=== PATIENT | female | born 2000 | race Caucasian/White ===

== ENCOUNTER 2021-01-11 09:13 | Emergency (ER) | payer SELFPAY ==
[~2021-01-11] VITALS: Ht 160 cm; Wt 50.9 kg
--- NOTE | 2021-01-11 10:15 | PHYS DOC ---
Past History Additional Past Medical Histor: PTSD, ADHD, OCD Past Surgical History: No Surgical History Alcohol Use: None General Adult EDM: Chief Complaint: FACE PAIN HPI: HPI: 20-year-old female presents with preauricular pain and occipital/upper cervical spine pain. The patient has had multiple episodes of the last 1 month where she gets a sharp pain in front of her ear around the TMJ. Sometimes this pain is coupled with an occipital pressure that feels like a vibration sensation at the very top of her neck that radiates down her neck. She will sometimes get the pain in front of her ear alone without the neck pain. She thinks the neck pain and headache are almost always coupled with the pain in front of her ear. Sometimes the pain is so significant that she cannot sleep at night. It has woken her from sleep times over the last 2 to 3 days. She denies history of migraines. She denies trauma or falls. She does have a popping sound on that side when she opens and closes her mouth. Review of Systems: Review of Systems: Constitutional: Denies fever or chills Eyes: Denies change in visual acuity HENT: Right TMJ pain Respiratory: Denies cough or shortness of breath Cardiovascular: Denies chest pain or edema GI: Denies abdominal pain, nausea, vomiting, bloody stools or diarrhea : Denies dysuria Musculoskeletal: Denies back pain or joint pain Integument: Denies rash Neurologic: Right-sided occipital headaches. Denies focal weakness or sensory changes Endocrine: Denies polyuria or polydipsia Lymphatic: Denies swollen glands Psychiatric: Denies depression or anxiety Allergies: Allergies: Allergies Coded Allergies Type Severity Reaction Last Updated Verified No Known Drug Allergies 01/11/21 No Physical Exam: PE: Constitutional: Well developed, well nourished, no acute distress, non-toxic appearance. [] HENT: Normocephalic, atraumatic, bilateral external ears normal, oropharynx moist, no oral exudates, nose normal. Bilateral tympanic membranes normal. [] Eyes: PERRLA, EOMI, conjunctiva normal, no discharge. [] Neck: Normal range of motion, no tenderness, supple, no stridor. [] Cardiovascular: Heart rate regular rhythm, no murmur [] Lungs & Thorax: Bilateral breath sounds clear to auscultation [] Abdomen: Bowel sounds normal, soft, no tenderness, no masses, no pulsatile masses. [] Skin: Warm, dry, no erythema, no rash. [] Back: No tenderness, no CVA tenderness. [] Extremities: No tenderness, no cyanosis, no clubbing, ROM intact, no edema. [] Neurologic: Alert and oriented X 3, normal motor function, normal sensory function, no focal deficits noted. [] Psychologic: Affect normal, judgement normal, mood normal. [] Current Patient Data: Vital Signs: Vital Signs Date Time Temp Pulse Resp B/P (MAP) Pulse Ox O2 Delivery O2 Flow Rate FiO2 01/11/21 09:25 98.3 110 18 125/83 98 Room Air EKG: EKG: [] Radiology/Procedures: Radiology/Procedures: [] Impressions: INDICATION: Reason: headaches, neck pain / Spl. Instructions: / History: COMPARISON: None. TECHNIQUE: Axial CT images obtained through the head and cervical spine without intravenous contrast. Coronal and sagittal reformats processed of cervical spine. One or more of the following individualized dose reduction techniques were utilized for this examination: 1. Automated exposure control; 2. Adjustment of the mA and/or kV according to patient size; 3. Use of iterative reconstruction technique. FINDINGS: Head: No intracranial hemorrhage. No midline shift. Basal cisterns patents. Ventricles and sulci are within normal limits. No acute osseous abnormality. Orbits and paranasal sinuses unremarkable. Cervical: No definite acute fracture. No dislocation. No evidence of perivertebral hematoma. IMPRESSION: * No acute intracranial hemorrhage. * No acute fracture or dislocation of the cervical spine. Electronically signed by: Leander Barney MD (01/11/2021 10:43 AM) DESKTOP- [id number] DICTATED AND SIGNED BY: LEANDER BARNEY MD DATE: 01/11/21 1032 CC: JOHN MONTERO DO; PCP,NO ~MTH0 0 Heart Score: C/O Chest Pain: N/A Risk Factors: Risk Factors: DM, Current or recent (<one month) smoker, HTN, HLP, family history of CAD, obesity. Risk Scores: Score 0 - 3: 2.5% MACE over next 6 weeks - Discharge Home Score 4 - 6: 20.3% MACE over next 6 weeks - Admit for Clinical Observation Score 7 - 10: 72.7% MACE over next 6 weeks - Early Invasive Strategies Course & Med Decision Making: Course & Med Decision Making Pertinent Labs and Imaging studies reviewed. (See chart for details) The patient's CT of the head and cervical spine is negative for acute findings. Based on my exam, I believe she definitely has TMJ dysfunction and I recommended that she follow-up with an appropriate dentist or her maxillofacial specialist. I am not sure what is causing the pain in the occipital part of her head. It could be triggered from the TMJ pain. It could be a separate issue emanating from her neck. She is right-handed and does a lot of painting. I have advised that she follow-up with her primary physician and consider physical therapy and/or further imaging as necessary. She is stable for discharge at this time. [] Anirudhon Disclaimer: Alejandro Disclaimer: This electronic medical record was generated, in whole or in part, using a voice recognition dictation system. Departure Departure: Impression: Primary Impression: TMJ disease Additional Impression: Headache Qualified Codes: G44.209 - Tension-type headache, unspecified, not intractable Disposition: 01 HOME / SELF CARE / HOMELESS Condition: STABLE Referrals: PCPMELBA (PCP) Patient Instructions: Temporomandibular Joint Pain-Brief, Tension Headache, [id number] JOHN MONTERO DO Jan 11, 2021 10:15
--- NOTE | 2021-01-11 10:46 | RAD ---
INDICATION: Reason: headaches, neck pain / Spl. Instructions: / History: COMPARISON: None. TECHNIQUE: Axial CT images obtained through the head and cervical spine without intravenous contrast. Coronal a nd sagittal reformats processed of cervical spine. One or more of the following individualized dose reduction techniques were utilized for this examinat ion: 1. Automated exposure control; 2. Adjustment of the mA and/or kV according to patient size; 3 . Use of iterative reconstruction technique. FINDINGS: Head: No intracranial hemorrhage. No midline shift. Basal cisterns patents. Ventricles and sulci are within normal limits. No acute osseous abnormality. Orbits and paranasal sinuses unremarkable. Cervical: No definite acute fracture. No dislocation. No evidence of perivertebral hematoma. IMPRESSION: * No acute intracranial hemorrhage. * No acute fracture or dislocation of the cervical spine. Electronically signed by: Aj Barney MD (01/11/2021 10:43 AM) [id number]
[2021-01-11 12:05] VITALS: BP 104/65
== END 2021-01-11 12:13 | disposition home or self-care (01) ==
LOC: ER 09:13
DX: M26.621 Arthralgia of right temporomandibular joint (principal); G44.209 Tension-type headache, unspecified, not intractable; F43.10 Post-traumatic stress disorder, unspecified
CPT/HCPCS: 70450; 72125; 99285-25

== ENCOUNTER 2021-01-24 21:12 | Emergency (ER) | payer SELFPAY ==
[~2021-01-24] VITALS: Ht 160 cm; Wt 51.4 kg
[2021-01-24 21:52] VITALS: BP 119/70
--- NOTE | 2021-01-24 21:53 | PHYS DOC ---
Past History Additional Past Medical Histor: PTSD, ADHD, OCD (QASIM BARFIELD APRN) Past Surgical History: No Surgical History (QASIM BARFIELD APRN) Alcohol Use: None (QASIM BARFIELD APRN) General Adult EDM: Chief Complaint: CHEST PAIN HPI: HPI: Patient is a 20-year-old female presents with left-sided chest pain for 3 days. Patient states "I have had this weird feeling in the left side of my chest and also like at tingling sensation". Patient denies nausea/vomiting/diarrhea. Denies shortness of breath. Patient states "I had to have anxiety so I do not know if that is what this is". Only health history is anxiety. (QASIM BARFIELD APRN) Review of Systems: Review of Systems: Constitutional: Denies fever or chills Eyes: Denies change in visual acuity HENT: Denies nasal congestion or sore throat Respiratory: Denies cough or shortness of breath Cardiovascular: Reports chest pain. Denies edema GI: Denies abdominal pain, nausea, vomiting, bloody stools or diarrhea : Denies dysuria Musculoskeletal: Denies back pain or joint pain Integument: Denies rash Neurologic: Denies headache, focal weakness or sensory changes Endocrine: Denies polyuria or polydipsia Lymphatic: Denies swollen glands Psychiatric: Denies depression or anxiety (QASIM BARFIELD APRN) Allergies: Allergies: Allergies Coded Allergies Type Severity Reaction Last Updated Verified No Known Drug Allergies 01/11/21 No (QASIM BARFIELD APRN) Physical Exam: PE: Constitutional: Well developed, well nourished, no acute distress, non-toxic appearance. [] HENT: Normocephalic, atraumatic, bilateral external ears normal, oropharynx moist, no oral exudates, nose normal. [] Eyes: PERRLA, EOMI, conjunctiva normal, no discharge. [] Neck: Normal range of motion, no tenderness, supple, no stridor. [] Cardiovascular:Heart rate regular rhythm, no murmur [] Lungs & Thorax: Bilateral breath sounds clear to auscultation [] Abdomen: Bowel sounds normal, soft, no tenderness, no masses, no pulsatile masses. [] Skin: Warm, dry, no erythema, no rash. [] Back: No tenderness, no CVA tenderness. [] Extremities: No tenderness, no cyanosis, no clubbing, ROM intact, no edema. [] Neurologic: Alert and oriented X 3, normal motor function, normal sensory function, no focal deficits noted. [] Psychologic: Affect normal, judgement normal, mood normal. [] (QASIM BARFIELD APRN) Current Patient Data: Vital Signs: Vital Signs Date Time Temp Pulse Resp B/P (MAP) Pulse Ox O2 Delivery O2 Flow Rate FiO2 01/24/21 21:16 98.6 92 16 138/81 98 Room Air (QASIM BARFIELD APRN) EKG: EKG: [] Sinus rhythm. Heart rate 82 bpm. (QASIM ABRFIELD APRN) Radiology/Procedures: Radiology/Procedures: [] (QASIM BARFIELD APRN) Heart Score: C/O Chest Pain: Yes HEART Score for Chest Pain: HEART Score for Chest Pain Response (Comments) Value History Slighlty/Non-Suspicious 0 ECG Normal 0 Age < 45 0 Risk Factors No Risk Factors 0 Total 0 Risk Factors: Risk Factors: DM, Current or recent (<one month) smoker, HTN, HLP, family history of CAD, obesity. Risk Scores: Score 0 - 3: 2.5% MACE over next 6 weeks - Discharge Home Score 4 - 6: 20.3% MACE over next 6 weeks - Admit for Clinical Observation Score 7 - 10: 72.7% MACE over next 6 weeks - Early Invasive Strategies (QASIM BARFIELD APRN) Course & Med Decision Making: Course & Med Decision Making Pertinent Labs and Imaging studies reviewed. (See chart for details) [] 20-year-old female presents with left-sided chest pain for 3 days. Patient reports that she has a history of anxiety and is concerned that that is what is causing her chest pain. Patient denies shortness of breath, dizziness, nausea/vomiting. Chest x-ray, troponin, UA, urine , EKG ordered. Transfer of patient care to Dr. Montero at 2152 (QASIM BARFIELD APRN) Course & Med Decision Making The patient's labs are unremarkable. Her chest x-ray is negative for acute findings. Her troponin is negative. Her urinalysis is negative for infection. She is not . It seems like the patient deals with anxiety. I do not see any concerning cardiopulmonary findings. She is stable for discharge at this time. (JOHN MONTERO DO) Dragon Disclaimer: Dragon Disclaimer: This electronic medical record was generated, in whole or in part, using a voice recognition dictation system. (QASIM BARFIELD APRN) Attending Co-Sign The patient was seen and interviewed as well as examined at the bedside. The chart was reviewed. The case was discussed. Agree with the plan of care. (JOHN MONTERO DO) Departure Departure: Impression: Primary Impression: Chest pain Qualified Codes: R07.9 - Chest pain, unspecified Additional Impression: Anxiety about health Disposition: HOME / SELF CARE / HOMELESS Condition: STABLE Referrals: PCP,MELBA (PCP) Patient Instructions: Chest Pain (Nonspecific), [id number] QASIM BARFIELD APRN Jan 24, 2021 21:53 JOHN MONTERO DO Jan 24, 2021 22:46
[2021-01-24 22:14] LABS: BACTERIA,URINE 0 /HPF (0-FEW); BILIRUBIN,URINE NEG (NEG); CLARITY,URINE CLEAR; COLOR,URINE YELLOW; GLUCOSE,URINE NEG (NEG); NITRITE,URINE NEG (NEG); RBC,URINE RARE /HPF (0-2); SQUAMOUS EPITHELIAL CELL,UR FEW /LPF; UROBILINOGEN,URINE 0.2 mg/dL (0.2 mg/dL); WBC,URINE RARE /HPF (0-4)
--- NOTE | 2021-01-24 22:22 | RAD ---
Exam: Chest one view INDICATION: Chest pain TECHNIQUE: Frontal view of the chest Comparisons: None FINDINGS: The cardiomediastinal silhouette and pulmonary vessels are within normal limits. The lung and pleural spaces are clear. IMPRESSION: No acute cardiopulmonary process. Electronically signed by: Massiel Moctezuma MD (01/24/2021 10:20 PM) JOANN
--- NOTE | 2021-01-25 06:29 | EKG ---
[address] [address] Test Date: 2021-01-24 Test Time: 21:30:28 Pat Name: DELROY DAVIS Department: Room: Gender: F Clinical Assistant Professor: : 2000 Requested By: QASIM BARFIELD Order Number: [id number] Reading MD: Measurements Intervals [place] Rate: 82 P: 62 AL: 164 QRS: 43 QRSD: 76 T: 43 QT: 348 QTc: 409 Interpretive Statements SINUS RHYTHM NORMAL ECG RI6.02 No previous ECG available for comparison
== END 2021-01-24 22:57 | disposition home or self-care (01) ==
LOC: ER 21:12
DX: R07.89 Other chest pain (principal); F41.9 Anxiety disorder, unspecified
CPT/HCPCS: 36415; 71045; 81001; 81025; 84484; 93005; 99285

== ENCOUNTER 2021-03-20 09:09 | Emergency (ER) | payer SELFPAY ==
[~2021-03-20] VITALS: Ht 160 cm; Wt 51.4 kg
[2021-03-20 09:09] VITALS: BP 127/71
--- NOTE | 2021-03-20 09:59 | PHYS DOC ---
Past History Additional Past Medical Histor: PTSD, ADHD, OCD Past Surgical History: No Surgical History Alcohol Use: None General Adult EDM: Chief Complaint: SORE THROAT HPI: HPI: 20-year-old female presents with throat discomfort. The patient has been having a feeling of throat restriction for the last couple of days. She has had this feeling on and off depending on how bad her acid reflux is for several weeks. Over the last couple of days she feels like anything that she swallows goes down slowly and feels like a "lump". She only takes generic Tums for her acid reflux. She has never had an EGD. She denies fever or chills. She has no significant complaints at this time. Review of Systems: Review of Systems: Constitutional: Denies fever or chills Eyes: Denies change in visual acuity HENT: Sore throat Respiratory: Denies cough or shortness of breath Cardiovascular: Denies chest pain or edema GI: Denies abdominal pain, nausea, vomiting, bloody stools or diarrhea : Denies dysuria Musculoskeletal: Denies back pain or joint pain Integument: Denies rash Neurologic: Denies headache, focal weakness or sensory changes Endocrine: Denies polyuria or polydipsia Lymphatic: Denies swollen glands Psychiatric: Denies depression or anxiety Allergies: Allergies: Allergies Coded Allergies Type Severity Reaction Last Updated Verified No Known Drug Allergies 01/11/21 No Physical Exam: PE: Constitutional: Well developed, well nourished, no acute distress, non-toxic appearance. [] HENT: Normocephalic, atraumatic, bilateral external ears normal, oropharynx moist, no oral exudates, nose normal. [] Eyes: PERRLA, EOMI, conjunctiva normal, no discharge. [] Neck: Normal range of motion, no tenderness, supple, no stridor. [] Cardiovascular: Heart rate regular rhythm, no murmur [] Lungs & Thorax: Bilateral breath sounds clear to auscultation [] Abdomen: Bowel sounds normal, soft, no tenderness, no masses, no pulsatile masses. [] Skin: Warm, dry, no erythema, no rash. [] Back: No tenderness, no CVA tenderness. [] Extremities: No tenderness, no cyanosis, no clubbing, ROM intact, no edema. [] Neurologic: Alert and oriented X 3, normal motor function, normal sensory function, no focal deficits noted. [] Psychologic: Affect normal, judgement normal, mood anxious. [] Current Patient Data: Vital Signs: Vital Signs Date Time Temp Pulse Resp B/P (MAP) Pulse Ox O2 Delivery O2 Flow Rate FiO2 03/20/21 09:09 97.7 95 16 127/71 (89) 100 Room Air EKG: EKG: [] Radiology/Procedures: Radiology/Procedures: [] Heart Score: C/O Chest Pain: N/A Risk Factors: Risk Factors: DM, Current or recent (<one month) smoker, HTN, HLP, family history of CAD, obesity. Risk Scores: Score 0 - 3: 2.5% MACE over next 6 weeks - Discharge Home Score 4 - 6: 20.3% MACE over next 6 weeks - Admit for Clinical Observation Score 7 - 10: 72.7% MACE over next 6 weeks - Early Invasive Strategies Course & Med Decision Making: Course & Med Decision Making Pertinent Labs and Imaging studies reviewed. (See chart for details) Based on the patient's description I wonder for acid reflux is worse than she thinks. I have advised that she do a trial of Nexium for 14 days and consider scheduling an EGD for direct visualization. Patient states verbal understanding. She is stable for discharge at this time. [] Dragon Disclaimer: Dragon Disclaimer: This electronic medical record was generated, in whole or in part, using a voice recognition dictation system. Departure Departure: Impression: Primary Impression: GERD (gastroesophageal reflux disease) Qualified Codes: K21.00 - Gastro-esophageal reflux disease with esophagitis, without bleeding Disposition: HOME / SELF CARE / HOMELESS Condition: STABLE Referrals: PCP,NO (PCP) Patient Instructions: Gastroesophageal Reflux Disease, Adult, [id number] Additional Instructions: Please take 2 Nexium 20 mg capsules daily for 14 days. You should also schedule an EGD which is a fiberoptic scope that we will look at your throat and stomach. JOHN MONTERO DO Mar 20, 2021 09:59
== END 2021-03-20 10:05 | disposition home or self-care (01) ==
LOC: ER 09:09
DX: K21.00 Gastro-esophageal reflux disease with esophagitis, without bleeding (principal)
CPT/HCPCS: 87070; 87880; 99283